=== PATIENT | male | born 1955 | race Caucasian/White ===

== ENCOUNTER → 2023-07-23 | Outpatient (CLI) | payer MEDICARE, SELFPAY ==
[2023-07-23 09:18] LABS: Absolute Lymphocyte Count 1.32 X10^3/uL (0.83-4.51); Absolute Neutrophil Count 2.5 X10^3/uL (2.0-7.7); Basophil# 0.02 X10^3/uL; Basophil% 0.5 % (0-1); Eosinophil# 0.19 X10^3/uL; Eosinophils% 4.3 % (0-5); Hematocrit 38.6 % (40-54); Hemoglobin 13.4 g/dL (13.0-16.5); Lymphocyte # 1.32 X10^3/ul (0.83-4.51); Lymphocyte % 29.7 % (19-41); Mean Corp Hgb Conc 34.7 g/dL (32-36); Mean Corpuscular Hgb 32.1 pg (27.0-32.0); Mean Corpuscular Volume 92.3 fL (80-94); Mean Platelet Vol. 9.3 fl (6.2-12.0); Monocyte# 0.36 X10^3/uL; Monocyte% 8.1 % (0-10); NRBC Flagged by Analyzer 0 % (0-5); Neutrophil # 2.54 X10^3/uL (2.7-7.7); Neutrophil % 57.2 % (47-70); Platelet Count 210 K/mm3 (150-450); RBC Distribution Width CV 11.9 % (11.6-14.6); RBC Distribution Width SD 39.9 fl (35.1-43.9); Red Blood Count 4.18 M/mm3 (4.6-6.2); White Blood Count 4.4 K/mm3 (4.4-11.0)
[2023-07-23 09:53] LABS: ALB/GLOB Ratio 1.2 RATIO (0.9-2.4); AST(SGOT) 43 U/L (15-37); Alanine Aminotransfer ALT/SGPT 59 U/L (16-61); Alkaline Phosphatase 49 U/L (45-117); Anion Gap 6 (5-15); BUN 21 mg/dL (7-18); BUN/Creat Ratio 23.1 RATIO (10-20); Calcium,Total 9.3 mg/dL (8.5-10.1); Chloride 106 mmol/L (98-107); Cholesterol 129 mg/dL (200); Creatinine, Serum 0.91 mg/dL (0.70-1.30); EST Glomerular Filtration Rate 88 mL/min (>60); Est Glom Filt Rate - Afr Amer 107 mL/min (>60); Globulin 3.2 g/dL (2.2-4.2); Glucose 102 mg/dL (74-106); High Density Lipoprotein 37 mg/dL; PSA,Total - Annual Screen 4.52 ng/mL (0.00-4.00); Potassium 3.8 mmol/L (3.5-5.1); Protein, Total 7.2 g/dL (6.4-8.2); Sodium Level 139 mmol/L (136-145); Triglycerides 142 mg/dL; Very Low Density Lipoprotein 28 mg/dL (5-40)
== END | disposition home or self-care (01) ==
PROVIDERS: PCP Family Medicine; Referring Provider Nurse Practitioner Family; Visit Provider Nurse Practitioner Family
DX: Z12.5 Encounter for screening for malignant neoplasm of prostate (principal); I10 Essential (primary) hypertension; E78.5 Hyperlipidemia, unspecified
CPT/HCPCS: 36415; 80053; 80061; 84153; 85025; G0103

== ENCOUNTER 2023-08-27 06:44 | Day surgery (SDC) | payer MEDICARE, SELFPAY ==
--- OUTSIDE RECORDS SUMMARY | 2023-08-27 06:48 | XMS RPT_ITS | CCD ---
Author Name Unknown Address [address] [place] [address] Organization [facility] Care Team Providers Care Tool Engine Lathe Set Up Operator Name Role Phone Bonifacio Sage Unavailable [phone] Torres Oconnell Unavailable Unavailable Torres Oconnell Unavailable Unavailable Naty Back Admitting Unavailable Naty Back Attending Unavailable [facility] Primary Care Unavailable Roman Huff Admitting Unavailable Roman Huff Attending Unavailable [facility] Primary Care Unavailable Kaden Darling Admitting Unavailable Kaden Darling Attending Unavailable [facility] Primary Care Unavailable Bonifacio Sage Primary Care Provider Bonifacio Sage Primary Care Provider Bonifacio Sage Primary Care Provider ZEUS UMAÑA Admitting Unavailable ZEUS UMAÑA Primary Care Unavailable ZEUS UMAÑA Attending Unavailable BERTRAND, JESSY Consulting Unavailable PROVIDER, UNKNOWN Consulting Unavailable PROVIDER, UNKNOWN Consulting Unavailable PROVIDER, UNKNOWN Consulting Unavailable ZEUS UMAÑA Admitting Unavailable ZEUS UMAÑA Primary Care Unavailable ZEUS UMAÑA Attending Unavailable BERTRAND, JESSY Consulting Unavailable PROVIDER, UNKNOWN Consulting Unavailable PROVIDER, UNKNOWN Consulting Unavailable PROVIDER, UNKNOWN Consulting Unavailable Bonifacio Sage CNP Primary Care Provider MORGAN BRAGG Attending Unavailable BONIFACIO SAGE Primary Care Unavailable MORGAN BRAGG Admitting Unavailable MORGAN BRAGG Referring Unavailable BONIFACIO SAGE Primary Care Unavailable KRIS ANGULO Admitting Unavailable KRIS ANGULO Referring Unavailable BONIFACIO SAGE Primary Care Unavailable Bonifacio Sage Unavailable SULEIMAN SULLIVAN Attending BONIFACIO Yin Primary Care Unavailable Allergies Allergy Classification Reported Allergen(s) Allergy Type Date of Onset Reaction(s) Facility (1 source) Richarddin D; Translations: [Coricedin D] Propensity to adverse reactions to drug (disorder) [facility] Medications Current Medications Medication Drug Class(es) Dates Sig (Normalized) Sig (Original) lisinopril 40 mg oral tablet (8 sources) Angiotensin Converting Enzyme Inhibitor take 2 tablets by mouth once daily lisinopril (PRINIVIL,ZESTRIL ) 40 MG tablet Take 80 mg by mouth daily. 0 Active metoprolol tartrate 25 mg oral tablet (9 sources) beta-Adrenergic Bonnie Start: 09-19-2019 metoprolol tartrate (LOPRESSOR) 25 MG tablet 1/2 pill at bedtime. . 90 tablet 3 09/19/2019 Active Completed/Discontinued Medications Medication Drug Class(es) Dates Sig (Normalized) Sig (Original) atorvastatin 10 mg oral tablet (3 sources) HMG-CoA Reductase Inhibitor End: 1 take 1 tablet by mouth once daily atorvastatin (LIPITOR) 10 MG tablet Take 10 mg by mouth daily . 0 11/01/2020 Discontinued (Discontinued by another clinician) fexofenadine hydrochloride 180 mg oral tablet (8 sources) Histamine-1 Receptor Antagonist End: 1 fexofenadine (FROYLAN) 180 MG tablet Take 180 mg by mouth as needed (Allergies). 0 11/01/2020 Discontinued (Discontinued by another clinician) hydroCHLOROthiazide 25 mg oral tablet (3 sources) Thiazide Diuretic End: 1 take 1 tablet by mouth once daily hydroCHLOROthiazide (HYDRODIURIL) 25 MG tablet Take 25 mg by mouth daily . 0 11/01/2020 Discontinued (Discontinued by another clinician) therapeutic multivitamin (THERAGRAN) tablet (6 sources) End: 1 take 1 tablet by mouth once daily therapeutic multivitamin (THERAGRAN) tablet Take 1 tablet by mouth daily. 0 11/01/2020 Discontinued (Discontinued by another clinician) Problems Active Problems Problem Classification Problem Date Documented Date Episodic/Chronic Cardiac dysrhythmias (9 sources) Supraventricular tachycardia; Translations: [Sinus bradycardia] Onset: 04-19-2017 04-19-2017 Chronic Essential hypertension (9 sources) Hypertensive disorder; Translations: [Essential hypertension] Onset: 03-23-2017 03-23-2017 Chronic Genitourinary symptoms and ill-defined conditions (5 sources) Nocturia; Translations: [Nocturia] Episodic Other circulatory disease (5 sources) H/O: hypertension; Translations: [Personal history of other diseases of circulatory system] Episodic Other diseases of kidney and ureters (5 sources) Renal mass; Translations: [Unspecified disorder of kidney and ureter] Chronic Other diseases of kidney and ureters (5 sources) Kidney lesion; Translations: [Unspecified disorder of kidney and ureter] Episodic Other non-traumatic joint disorders (1 source) Shoulder pain; Translations: [Pain in left shoulder] Episodic Other screening for suspected conditions (not mental disorders or infectious disease) (2 sources) Raised prostate specific antigen; Translations: [Elevated prostate specific antigen [PSA]] Episodic Past or Other Problems Problem Classification Problem Date Documented Date Episodic/Chronic Cardiac dysrhythmias (1 source) Sinus bradycardia; Translations: [Bradycardia, unspecified] Onset: 09-19-2019 09-19-2019 Episodic Unclassified (1 source) History of supraventricular tachycardia Results Test Name Value Interpretation Reference Range Facil ity Vital Signs Date Time Vital Sign Value Performing Clinician Davian montero 10-17-2021 15:09-0400 Body height 173.99 cm Bonifacio Muñiz [employer] Phone: [facility] Work Phone: 10-17-2021 15:09-0400 Body mass index (BMI) [Ratio] 36.27 kg/m2 Bonifacio Muñiz [employer] Phone: [facility] Work Phone: 10-17-2021 15:09-0400 Body surface area Derived from formula 2.23 m2 Bonifacio Muñiz [employer] Phone: [facility] Work Phone: 10-17-2021 15:09-0400 Body weight 109.79 kg Bonifacio Muñiz [employer] Phone: [facility] Work Phone: 10-17-2021 15:09-0400 Diastolic blood pressure 81 mm[Hg] Bonifacio L Hellinger Work Phone: [facility] Work Phone: 10-17-2021 15:09-0400 Heart rate 65 /min Bonifacio L Hellinger Work Phone: YL[facility]Xtpjalz[facility]Pomsvsi Work Phone: 10-17-2021 15:09-0400 Systolic blood pressure 147 mm[Hg] Bonifacio L Hellinger Work Phone: [facility]Uttpikd[facility]ya[facility] Work Phone: 09-29-2021 12:54-0400 Body height 174 cm Bonifacio L Hellinger Work Phone: ZC[facility]Szlcyuu-Moiqdhe Work Phone: 09-29-2021 12:54-0400 Body mass index (BMI) [Ratio] 36.46 kg/m2 Bonifacio L Hellinger Work Phone: OL-Wfkjcen-Qkonhvn Work Phone: 09-29-2021 12:54-0400 Body surface area Derived from formula 2.23 m2 Bonifacio L Hellinger Work Phone: LV-Ofjeqdo-Zsecjda Work Phone: 09-29-2021 12:54-0400 Body weight 110.4 kg Bonifacio L Hellinger Work Phone: UD-Fuwhbhb-Kycqqlg Work Phone: 09-29-2021 12:54-0400 Diastolic blood pressure 88 mm[Hg] Bonifacio L Hellinger Work Phone: RL-Rinbejc-Sqleskh Work Phone: 09-29-2021 12:54-0400 Heart rate 74 /min Bonifacio L Hellinger Work Phone: QQ-Wtrjgjp-Sugfnzh Work Phone: 09-29-2021 12:54-0400 Systolic blood pressure 148 mm[Hg] Bonifacio Sage Work Phone: BO-Xklbhrr-Wjiowzh Work Phone: 11-01-2020 13:51-0400 Body height 172.7 cm Morgan Bragg MD Work Phone: [facility] 11-01-2020 13:51-0400 Body mass index (BMI) [Ratio] 33.45 kg/m2 Morgan Bragg MD Work Phone: [facility] 11-01-2020 13:51-0400 Body weight 99.79 kg Morgan Bragg MD Work Phone: [facility] 04-17-2017 14:32-0400 BMI (Body Mass Index) 32.54 kg/m2 Kosta Keller [facility] Work Phone: 04-17-2017 14:32-0400 BP Diastolic 92 mm[Hg] Kosta Keller [facility] Work Phone: 04-17-2017 14:32-0400 BP Systolic 167 mm[Hg] Kosta Keller [facility] Work Phone: 04-17-2017 14:32-0400 Height 172.7 cm Kosta Keller [facility] Work Phone: 04-17-2017 14:32-0400 Pulse (Heart Rate) 58 /min Kosta Keller [facility] Work Phone: 04-17-2017 14:32-0400 Pulse Oximetry 97 % Kosta Keller [facility] Work Phone: 04-17-2017 14:32-0400 Weight 97.07 kg Kosta Keller [facility] Work Phone: 03-27-2017 11:20-0400 BMI (Body Mass Index) 31.93 kg/m2 Torres Oconnell [facility] Work Phone: 03-27-2017 11:20-0400 BP Diastolic 93 mm[Hg] Torres Oconnell [facility] Work Phone: 03-27-2017 11:20-0400 BP Systolic 153 mm[Hg] [facility] 03-27-2017 11:20-0400 Height 172.7 cm Torres Oconnell [facility] Work Phone: 03-27-2017 11:20-0400 Pulse (Heart Rate) 57 /min Torres Oconnell [facility] Work Phone: 03-27-2017 11:20-0400 [facility] 95.25 [facility] Work [facility]: 03-23-2017 13:22-0400 BMI (Body Mass Index) 32.23 kg/m2 Torres Oconnell [facility] Work Phone: 03-23-2017 13:22-0400 BP Diastolic 91 mm[Hg] Torres Oconnell [facility] Work Phone: 03-23-2017 13:22-0400 BP Systolic 146 mm[Hg] Torres Oconnell [facility] Work Phone: 03-23-2017 13:22-0400 Height 172.7 cm Torres Oconnell [facility] Work Phone: 03-23-2017 13:22-0400 Pulse (Heart Rate) 53 /min [facility] Work [facility]: 03-23-2017 13:22-0400 Pulse Oximetry 94 % Torres Oconnell [facility] Work Phone: 03-23-2017 13:22-0400 Weight 96.16 kg Torres Oconnell [facility] Work Phone: Encounters Encounter Date Encounter Type Care Provider Facility Start: 10-17-2021 Office outpatient vi sit 15 minutes Bonifacio Sage Work Phone: LE[facility]Qrqbbtt[facility]Xobebdd Work Phone: Start: 10-13-2021 Chart Update Bonifacio daily Work Phone: UA[facility]Cmhiwpb-Fdkcjsj Work Phone: Start: 09-29-2021 Office outpatient ne w 45 minutes Bonifacio Sage Work Phone: MV-Glxkiiw-Uzpggwe Work Phone: Start: 09-22-2021 End: 09-26-2021 [facility] Start: 09-15-2021 End: 09-15-2021 Emergency department patient visit SULEIMAN SUN [facility] Start: 11-01-2020 End: 11-05-2020 ambulatory MORGAN BRAGG [facility] Start: 11-01-2020 End: 11-01-2020 Office outpatient new 30 minutes Morgan Bragg MD Work Phone: [facility] Procedures Date Procedure Procedure Detail Performing Clinician Start: 11-01-2020 Arthrocentesis aspir &/inj major jt/bursa w/o us Morgan Bragg MD Work Phone: Start: 03-27-2017 End: 03-27-2017 Cardiovascular stress test Torres Oconnell Work Phone: Start: 03-27-2017 End: 03-27-2017 Tte w/doppler, complete Torres mcguire Work Phone: Operative procedure on knee Bonifacio Sage Work Phone: Repair of shoulder Bonifacio gonzales Work Phone: Plan of Treatment Date Care Activity Detail Author Start: 10-25-2028 Tetanus vaccination Tetanus: Every 10yrs [facility] Start: 11-07-2021 FUV, Provider: Wilfredo Sheikh, Status: Pen, Time: 3:00 PM FUV, Provider: Wilfredo Sheikh, Status: Pen, Time: 3:00 PM HM[facility]Iletxna-Vjgtfsz Work Phone: Start: 10-17-2021 FUV, Provider: Wilfredo Sheikh, Status: Pen, Time: 3:45 PM FUV, Provider: Wilfredo Sheikh, Status: Pen, Time: 3:45 PM HC-Wvrjyay-Djuthci Work Phone: Start: 03-02-2020 Influenza vaccination given Sequential Influenza Vaccine (#1) [facility] Start: 03-02-2019 Influenza vaccination given Sequential Influenza Vaccine (#1) [facility] Start: 04-17-2017 Ambulatory 04/17/2017 Office Visit Cardiology Kosta Keller MD [address] [place] [address] [phone] [facility] Start: 03-27-2017 End: 03-27-2017 Ambulatory 03/27/2017 Appointment Cardiology Torres Oconnell DO [address] [place] [address] [phone] [facility] Start: 03-02-2017 Influenza vaccination SEQUENTIAL INFLUENZA VACCINE (#1) [facility] Work Phone: Start: 2016 Zoster vacc, sc ZOSTER VACCINE [facility] Work Phone: Start: 2006 Administration of herpes zoster vaccine Zoster Vaccines (1 of 2) [facility] Start: 2006 Screening for malignant neoplasm of colon [facility] Start: 1974 Hepatitis C antibody, confirmatory test Hepatitis C Screening [facility] Start: 1974 Hepatitis C screening Hepatitis C Screening [facility] Start: 1972 COVID-19 Vaccine (1 of 2) COVID-19 Vaccine (1 of 2) [facility] Start: 11-23-1971 HIV screening HIV Screening [facility] Start: 1968 Adolescent depression screening assessment Depression Screening (PHQ9) [facility] Start: 1968 Depression screening using PHQ-9 (Patient Health Questionnaire 9) score Depression Screening (PHQ9) [facility] Start: 11-23-1959 History and physical examination, annual for health maintenance Wellness Visit [facility] Start: 1956 Hepatitis C antibody, confirmatory test Hepatitis C Screening [facility] Start: 1956 Prostate specific antigen measurement PSA Level [facility] Start: 1956 Screening for malignant neoplasm of colon Colorectal Cancer Screening: Colonoscopy [facility] Start: 1956 End: 1956 HEPATITIS C SCREENING HEPATITIS C SCREENING [facility] Work Phone: Start: 1956 End: 1956 Screening colonoscopy COLONOSCOPY [facility] Work Phone: Start: 1956 End: 1956 Tetanus vaccination [facility] Work Phone: End: 05-23-2018 Echocardiogram complete Echocardiogram complete Routine History of supraventricular tachycardia 1 Occurrences starting 03/23/2017 until 05/23/2018 [facility] Work Phone: End: 05-23-2018 Stress test only, exercise Stress test only, exercise Routine History of supraventricular tachycardia 1 Occurrences starting 03/23/2017 until 05/23/2018 [facility] Phone: Payers Date Payer Category Payer Worker's Compensation [id number] 2020 Unknown [id number] 02 2018 Unknown 2015 Unknown [id number] 2015 Unknown [employer] PPO [id number] 2015-Present [id number] 2006 Unknown [id number] 2006 Unknown [id number] 2006 Unknown DANIA PAYNE/PREF/HMO/PPO [id number] 2006-Present [id number] 1956 Unknown [id number] [id number]. 356 1956 Unknown [id number] 2.16.840.1.587686.3.579.2. 356 1956 Unknown [id number] [id number]. 356 1956 Unknown [id number] 2.16.840.1.330584.3.579.2. 717 1956 Unknown [id number] 2.16.840.1.839562.3.579.2. 717 1956 Unknown [id number] 2.16.840.1.794264.3.579.2. 717 1956 Unknown [id number] 2.16.840.1.486493.3.579.2. 651 1956 Unknown [id number] 2.16.840.1.047823.3.579.2. 651 1956 Unknown [id number] 2.16.840.1.129544.3.579.2. 903 1956 Unknown [id number] 2.16.840.1.371389.3.579.2. 903 1956 Unknown [id number] 2.16.840.1.549417.3.579.2. 903 1956 Unknown [id number] 2.16.840.1.447073.3.579.2. 903 Unknown [id number] Unknown [id number] Unknown [facility] [id number] Effective for all dates [id number] Unknown [id number] Social History Date Type Detail Facility Start: 03-27-2017 End: 11-01-2020 Tobacco smoking status RIIS Never smoker [facility] Work Phone: Sex Assigned At Not on file [facility] Work Phone: Start: 09-19-2019 End: 11-01-2020 Alcohol intake Current drinker of alcohol (finding) [facility] Start: 09-19-2019 End: 11-01-2020 Tobacco use and exposure Never used [facility] Exposure to SARS-CoV -2 (event) Not sure [facility] Never a smoker Never a smoker [facility] Work Phone: History of Present illness Narrative 09-19-2021 Note Date & Type Note Facility 09-19-2021 History of Present illness Narrative Consult for renal lesion. Pt had a recent CT urogram done which did show bilateral cysts and indeterminate lesion in right kidney with thick internal septation. He states he had a fall at work 2 weeks ago. he states he does have some right flank pain since the fall. Chronic BPH sx are mild and stable. some urgency or frequency. No dysuria. No hematuria. Nocturia 2x. caffeine does worsen sx. he does limit his caffeine intake to am. Pt has not had a recent PSA done. he does have FHx of prostate Ca. (father). No hx of kidney stones. Patient had a recent fall on his right flank and right back, he still complaining of pain 5/10, pressure-like in nature, mostly tenderness upon palpation, no fever no chills, no nausea no vomiting, no constipation, no new LUTS, no hematuria, pain does subside partially with mwej-sdv-xjpekjo medication. CT angiogram revealed multiple small exophytic lesion the biggest was 1.6 cm. We had a very long and extensive discussion with the patient regarding the pathophysiology, differential diagnosis, risk factor, management, natural history, incidence and diagnostic work-up of the condition.Explained to him that we need to proceed with a MR urogram to better assess this kidney lesions rule out any malignancy or solid component. [facility] Work Phone: History of Present illness Narrative 09-15-2021 Note Date & Type Note Facility 09-15-2021 History of Present illness Narrative Consult for renal lesion. Pt had a recent CT urogram done which did show bilateral cysts and indeterminate lesion in right kidney with thick internal septation. He states he had a fall at work 2 weeks ago. he states he does have some right flank pain since the fall. Chronic BPH sx are mild and stable. some urgency or frequency. No dysuria. No hematuria. Nocturia 2x. caffeine does worsen sx. he does limit his caffeine intake to am. Pt has not had a recent PSA done. he does have FHx of prostate Ca. (father). No hx of kidney stones. Patient had a recent fall on his right flank and right back, he still complaining of pain 5/10, pressure-like in nature, mostly tenderness upon palpation, no fever no chills, no nausea no vomiting, no constipation, no new LUTS, no hematuria, pain does subside partially with jkry-ovj-pajxklf medication. CT angiogram revealed multiple small exophytic lesion the biggest was 1.6 cm. We had a very long and extensive discussion with the patient regarding the pathophysiology, differential diagnosis, risk factor, management, natural history, incidence and diagnostic work-up of the condition.Explained to him that we need to proceed with a MR urogram to better assess this kidney lesions rule out any malignancy or solid component. TL[facility]Rzexpab-Ovnfpcd Work Phone: History of Present illness Narrative 11-01-2020 Morgan Bragg MD - 11/01/2020 2:39 PM EDT Note Date & Type Note Facility 11-01-2020 History of Presen t illness Narrative Associated Order(s): LG Jt Injection/Arthrocentesis: L subacromial bursa Post-Procedure Diagnose(s): Acute pain of left shoulder Prashanth is a 64-year-old white male seen for evaluation of left shoulder pain. Around 2000, he had a left rotator cuff repair. He stated it was a very difficult repair and rehabilitation. He had been doing pretty well until I had seen him about 15 years ago and injected his shoulder and it had not given him any problems until he was lifting weights and felt a little pop as he lifted weight overhead. This happened about 2 months ago and since then he has had soreness in his shoulder and pain reaching out and overhead activities. He cannot lift as heavy objects as he used to. He works maintenance. MEDICATIONS ARE Lisinopril, metoprolol. PAST MEDICAL HISTORY He has had a history of hypertension, supraventricular tachycardia. He states his mental health is good. SOCIAL HISTORY He works maintenance. Drinks occasional beer. Does not smoke. REVIEW OF SYSTEMS No chest pain, shortness of breath. No PND, orthopnea. No bowel or bladder symptoms or other issues. PHYSICAL EXAM General: Reveals a pleasant white male who is overweight but no acute distress. His general exam is unremarkable. He is alert and oriented x3. Neck: Supple. Musculoskeletal: His left shoulder has full passive range of motion. There is very minor crepitation. His biceps tendon appears intact. He is tender some toward the biceps, some posterior. There is some atrophy noted of the supraspinatus but he has good internal and external rotation. Positive impingement sign, but he is neurovascularly intact. IMAGING X-rays left shoulder 4 views reveal spurring from the acromion almost matches the arc of the humerus, but there is intact subacromial space. His AC joint is arthritic and there is a bony spur going inferiorly as well. IMPRESSION Rotator cuff pathology, left shoulder. He may have a complete tear. I told him I thought I would take an MRI to be sure. He has reasonably good function. We have decided to inject it, and after a sterile scrub, I injected left shoulder with 40 mg of Kenalog mixed with Xylocaine. I told him to give it 2, possibly 3 weeks. If there is still a significant amount of pain, then I think we can get an MRI. He can continue to work on motion. He is doing his own therapy essentially. No overhead lifting or weights, though. Otherwise p.r.n. return. LG Jt Injection/Arthrocentesis: L subacromial bursa Performed by: Morgan Bragg MD Authorized by: Morgan Bragg MD Supporting Documentation: Indications: Pain Procedure Details: Location: Shoulder Site: L subacromial bursa Prep: patient was prepped and draped in usual sterile fashion Needle size: 22 G Approach: Posterior Medications: 40 mg triamcinolone acetonide 40 mg/mL Anesthetic used: Lidocaine 1% Anesthetic amount (mL): 2 Patient tolerance: Patient tolerated the procedure well with no immediate complications documented in this encounter [facility] Evaluation note Note Date & Type Note Facility documented in this encounter [facility] History of Present illness Narrative Note Date & Type Note Facility History of Present illness Narrative Patient presents to the office today for MRI Abdomen Results. Results show bilateral renal lesions consistent with likelyhemorrhagic/proteinaceous cyst (Bosniak 2). Hx of renal lesion. Recent CT urogram done which did show bilateral cysts and indeterminate lesion in right kidney with thick internal septation. Chronic BPH sx are mild and stable. some urgency or frequency. No dysuria. No hematuria. Nocturia 2x. caffeine does worsen sx. he does limit his caffeine intake to am. Most recent PSA was 5.1 (10/21). He does have FHx of prostate Ca. (father). No hx of kidney stones. We had a very long and extensive discussion with the patient regarding the pathophysiology, differential diagnosis, risk factor, management, natural history, incidence and diagnostic work-up of the condition. We discussed that at this point the MRI urogram done on October 10, 2021 did not reveal any sign or symptom of malignancy.Explained to him that we need to proceed with a MR urogram to better assess this kidney lesions rule out any malignancy or solid component. [facility] Work Phone: Assessments Diagnosis History of supraventricular tachycardia Personal history of other diseases of circulatory system Diagnosis History of supraventricular tachycardia Personal history of other diseases of circulatory system Essential hypertension Unspecified essential hypertension Diagnosis History of supraventricular tachycardia Personal history of other diseases of circulatory system Diagnosis SVT (supraventricular tachyc ardia) (HCC) - Primary Other specified cardiac dysrhythmias History of supraventricular tachycardia Personal history of other diseases of circulatory system Essential hypertension Unspecified essential hypertension Diagnosis Sinus bradycardia Other specified cardiac dysrhythmias SVT (supraventricular tachycardia) (HCC) Other specified cardiac dysrhythmias Summary Purpose Family History No Family History Records FoundUnknown Family Member Name Dates Details Family history of kidney dis ease: Mother(V18.69, Z84.1) Status:Active Unknown Family Member Name Dates Details Family history of kidney dis ease: Mother(V18.69, Z84.1) Status:Active Unknown Family Member Name Dates Details Family history of kidney dis ease: Mother(V18.69, Z84.1) Status:Active Advance Directives No Advanced Directives Records FoundDocuments on File Type Date Recorded Patient Maintenance Supervisor Electrical Expl anation Advance Directives and Living Will Documents on File Type Date Recorded Patient Maintenance Supervisor Electrical Expl anation Advance Directives and Living Will Reason for Referral Status Reason Specialty Diagnoses / Procedures Referred By Contact Referred To Contact Authorized Cardiology Diagnoses Sinus bradycardia SVT (supraventricular tachycardia) (HCC) Morgan Baptiste MD [facility] [address] [address] Aaron Goss MD [address] [place] [address] Scheduling Instructions Routine Instructions * Patient Instructions* Shayy Carver MA - 09/19/2019 8:35 AM EDT How to Contact your Care Team: Provider: Dr. Morgan Baptiste MD Medical Lab Technician: Emilee Gaston RN REFILLS: When in need for refills please call your care team or the office at [phone]. Please include medication name, pharmacy name, and specify 30-day or 90-day supply. Please check with your pharmacy within 24 hours of request for your refill. You must follow up as directed to continue current refills. Thank you! documented in this encounter History of Present Illness * Morgan Baptiste MD - 09/19/2019 9:12 AM EDT Telephone Visit Via Phone Call Patient ID: Prashanth Paige is a 63 y.o. male on the phone for a sick visit Patient phone : [phone] This visit has been fully reviewed with the patient and verbal consent has been obtained. HPI Holter monitor reviewed [facility] September 13, 2019 sinus rhythm with increased ventricular ectopy. Episode of idioventricular rhythm at 91 bpm Occasional supraventricular ectopy 17 SVT runs longest 7 beats fastest 176 bpm Patient no symptoms. No A. fib. Patient with history of SVT in the past documented apparently ER visit in 2017 at [facility] did document SVT at that time per ER report September 04, 2016 initial EKG shows SVT with rate of 173, fortunately no rhythm strips or EKG of that are available.. Seen by Dr. Krishna RAINEY in 2017 and recommended continued medical therapy has been controlled with metoprolol but has had trouble with development of bradycardia heart rate down to 38 at home. Pulse in the 40s no syncope near syncope. about 3 weeks ago per PCP his metoprolol was discontinued. 1 week ago patient had episode of presumed SVT heart rate on Fitbit was 180 for the patient. Previous that he had a heart rate of around 50 had felt weak. He did submersion of his face into ice water with breaking of the SVT. Squad was called by the timethey got there the SVT had broken. Was taken to the ER at [facility] work-up was unremarkable EKG unremarkable troponin negative. Patient was discharged home He did wear a Holter monitor through [facility] results as noted above patient states he did not feel any palpitations while wearing the monitor. Heart rate this week without any beta-bonnie has beenrunning in the 55-65 range. Has felt pretty well. Impression: Recurrent SVT patient is able to break it at home with ice water facial plunge. Presumed sinus bradycardia on metoprolol with side effects of weakness fatigue. Plan at this point will restart low-dose metoprolol half of a 25 mg pill at bedtime since most of his attacks through the years have been in the first thing in the morning. We will set up consultation with electrophysiology [facility] in [place] consideration of ablation. Patient is agreement with this plan. The following portions of the patient's history were reviewed and updated as appropriate: He has a past medical history of Hypertension and SVT (supraventricular tachycardia) (HCC).. Review of Systems Reviewed per [place]. Patient's Medications New Prescriptions No medications on file Previous Medications ATORVASTATIN (LIPITOR) 10 MG TABLET Take 10 mg by mouth daily . FEXOFENADINE (FROYLAN) 180 MG TABLET Take 180 mg by mouth as needed (Allergies). HYDROCHLOROTHIAZIDE (HYDRODIURIL) 25 MG TABLET Take 25 mg by mouth daily . LISINOPRIL (PRINIVIL,ZESTRIL) 40 MG TABLET Take 80 mg by mouth daily. THERAPEUTIC MULTIVITAMIN (THERAGRAN) TABLET Take 1 tablet by mouth daily. Modified Medications No medications on file Discontinued Medications METOPROLOL TARTRATE (LOPRESSOR) 50 MG TABLET Take 25 mg by mouth 2 (two) times a day. Assessment/Plan: Diagnoses and all orders for this visit: SVT (supraventricular tachycardia) (HCC) - Ambulatory referral to Cardiac Electrophysiology; Future Sinus bradycardia - Ambulatory referral to Cardiac Electrophysiology; Future Provider location: [address] [facility] [address] [place] [id number] Patient location: [id number] [place] [address] I have spent 21-30 minutes with the patient discussing current HPI. * Shayy Carver MA - 09/19/2019 8:34 AM EDT Review of Systems Constitution: Negative for diaphoresis, malaise/fatigue, weight gain and weight loss. HENT: Negative for hearing loss, nosebleeds and tinnitus. Eyes: Negative for blurred vision and visual disturbance. Cardiovascular: Negative for chest pain, claudication, cyanosis, dyspnea on exertion, irregular heartbeat, leg swelling, near-syncope, orthopnea, palpitations, paroxysmal nocturnal dyspnea and syncope. Respiratory: Negative for hemoptysis, shortness of breath and snoring. Endocrine: Negative for cold intolerance and heat intolerance. Hematologic/Lymphatic: Does not bruise/bleed easily. Skin: Negative for flushing, poor wound healing and rash. Musculoskeletal: Negative for back pain, muscle weakness and myalgias. Gastrointestinal: Negative for abdominal pain, change in bowel habit, melena, nausea and vomiting. Genitourinary: Negative for decreased libido and hematuria. Neurological: Negative for loss of balance and numbness. Psychiatric/Behavioral: Negative for memory loss. The patient is not nervous/anxious. documented in this encounter Chief Complaint RENAL LESIONRENAL LESIONMRI Abdomen ResultsMRI Abdomen Results Additional Source Comments (unrecognized sect ion and content) No Status Records FoundNo Status Records FoundNo Status Records FoundNo Status Records FoundNo Status Records FoundNo Status Records FoundNo Status Records FoundNo Status Records FoundNo Status Records Found INFORMATION SOURCE (unrecogn ized section and content) DATE CREATED AUTHOR AUTHOR'S ORGANIZ ATION 09/17/2018 [facility] DATE CREATED AUTHOR AUTHOR'S ORGANIZ ATION 10/26/2018 [facility] DATE CREATED AUTHOR AUTHOR'S ORGANIZ ATION [facility] DATE CREATED AUTHOR AUTHOR'S ORGANIZ ATION 11/06/2020 [facility] DATE CREATED AUTHOR AUTHOR'S ORGANIZ ATION 09/26/2021 [facility] DATE CREATED AUTHOR AUTHOR'S ORGANIZ ATION 10/13/2021 [facility] DATE CREATED AUTHOR AUTHOR'S ORGANIZ ATION 10/31/2021 [employer] DATE CREATED AUTHOR AUTHOR'S ORGANIZ ATION 02/23/2022 [facility] Reason for Visit (unrecogniz ed section and content) Reason Comments Pain FOR RECORDS PERTAINING TO PATIENTS WHO ARE OR HAVE BEEN ENROLLED IN A CHEMICAL DEPENDENCY/SUBSTANCEABUSE PROGRAM, SOME INFORMATION MAY BE OMITTED. This clinical summary was aggregated from multiple sources. Caution should be exercised in using it in the provision of clinical care. This summary normalizes information from multiple sources, and as a consequence, information in this document may materially change the coding, format and clinical context of patient data. In addition, data may be omitted in some cases. CLINICAL DECISIONS SHOULD BE BASED ON THE PRIMARY CLINICAL RECORDS. [facility]. provides no warranty or guarantee of the accuracy or completeness of information in this document.
[2023-08-27 07:23] VITALS: BP 133/70; PULSE 72; RESP 16; TEMP 36.1; O2SAT 96; BMI 34.5
[2023-08-27] MEDS: Lactated Ringers 1,000 ML 15 ML IV (07:27)
--- NOTE | 2023-08-27 08:00 | COLBX_PTH ---
PATHOLOGY RESULTS PATIENT: PRASHANTH PAIGE LOC: EN U#:[id number] AGE/SX: 67/M ROOM: RE08/27/[address]: Dr. Prabhjot Petersen DO : 1955 BED: DIS: 08/27/2023 SPEC #: [id number] RECD: 08/27/23 10:10 STATUS: ANNETTA SOMMER #: [id number] ZUNILDA: 08/27/23 08:[address]: Prabhjot Petersen DEPT: SURGICAL PATHOLOGY RECD BY: Deepti Jones ENTERED: 08/27/23 10:39 SP TYPE: COLON BX Tissues: Ascending colon Procedures: Surgery Specimen Level IV HEADER OPERATION: Colonoscopy - open access with polyp biopsy PRE-OP DIAGNOSIS: Screening TISSUE SUBMITTED: Polyp biopsy ascending colon MICROSCOPIC DIAGNOSIS Ascending colon polyp, biopsy: A polypoid fragment of colonic mucosa, consistent with benign mucosal polyp. BRIAN:khloe 08/28/2023 MICROSCOPIC DESCRIPTION Slides are reviewed. GROSS DESCRIPTION Received in fixative is one container labeled with the patient's name and designated ascending colon polyp biopsy. The specimen consists of one irregular fragment of light goel soft tissue that measures 0.2 x 0.2 x 0.1 cm. The specimen is totally submitted in one cassette. / AM:khloe 08/27/2023 TC:5 CPT: 67761
--- NOTE | 2023-08-27 08:11 | HP.PCM_ITS ---
[facility] - General General Date of Admission: 08/27/23 Date of Service: 08/27/23 Chief Complaint: Screening colonoscopy HPI Narrative PRASHANTH PAIGE, is a 67 M who presents today for screening colonoscopy. He has had a colonoscopy approximately 11 years ago and it was normal. He has a past medical history of hypertension, hypercholesterolemia. He does not have any chest pain or shortness of breath. Overall he is in very good health. [facility] Medical History (Updated 08/23/23 @ 09:24 by Chelsie Duenas) Alcohol use Arthritis History of echocardiogram History of irregular heartbeat HTN (hypertension) Skin cancer Home Medications atorvastatin 20 mg tablet 20 mg PO QHS 07/24/23 [History Last Taken Unknown] fexofenadine 180 mg tablet (Allergy Relief (fexofenadine)) 180 mg PO DAILY 07/24/23 [History Last Taken Unknown] hydrochlorothiazide 25 mg tablet 25 mg PO DAILY 07/24/23 [History Last Taken Unknown] lisinopril 40 mg tablet 80 mg PO DAILY 07/24/23 [History Last Taken 08/27/23] metoprolol tartrate 25 mg tablet 12.5 mg PO QHS 07/24/23 [History Last Taken Unknown] multivitamin 1 tab PO DAILY 08/23/23 [History Last Taken Unknown] Allergy/AdvReac Type Severity Reaction Status Date / Time grass pollen Allergy Other Verified 08/27/23 07:18 Family History (Updated 07/24/23 @ 11:51 by Anya Jackson) Father Prostate CA Brother Prostate CA Surgical History (Updated 08/23/23 @ 09:24 by Chelsie Duenas) History of repair of left rotator cuff Hx of colonoscopy Hx of left knee surgery Hx of repair of right rotator cuff Social History (Updated 07/24/23 @ 11:51 by Anya Jackson) household members: spouse current occupational status: retired Smoking Status: Never smoker substance use type: does not use ROS Review of Systems ROS Unobtainable: other Constitutional Constitutional: Denies fatigue, fever(s), poor appetite, weight gain or weight loss ENT HEENT: Denies mouth lesions Cardiovascular Cardiovascular: Denies abdominal bloating, abdominal edema or abdominal pain Respiratory/Chest Respiratory/Chest: Denies change in mental status, change in phlegm color, chest congestion or chest tightness Gastrointestinal Gastrointestinal: Denies belching, bloating, change in bowel habits, change in stool character, chewing difficulty, coffee ground emesis, constipation, cramping, diarrhea, dyspepsia, dysphagia, early satiety, excessive flatus, fecal incontinence, heartburn, hematemesis, hematochezia, hemorrhoids, loose stools, melena, nausea, odynophagia, rectal bleeding, tenesmus, vomiting or weight changes Genitourinary Genitourinary: Denies abdominal discomfort, burning urination or itching Musculoskeletal Musculoskeletal: Reports as per HPI; Denies muscle weakness or myalgias Integumentary Integumentary: Denies jaundice Neurologic Neurologic: Denies lack of coordination or weakness Psychiatric Psychiatric: Denies confusion, depression, memory loss, mood swings, paranoia or suicidal ideation Endocrine Endocrinology: Denies systems reviewed and no addt'l complaints, except as documented Hematologic/Lymphatic Hematologic/Lymphatic: Denies anemia, easy bleeding, easy bruising or lymphadenopathy Allergic/Immunologic Allergic/Immunologic: Denies systems reviewed and no addt'l complaints, except as documented Vital Signs Vital Signs Vital Signs: 08/27/23 07:23 08/27/23 07:23 Temperature 96.9 F L Temperature Source Temporal Pulse Rate 72 Respiratory Rate 16 Respiratory Pattern Normal Blood Pressure 133/70 H Blood Pressure Mean 91 Blood Pressure Source Monitor Blood Pressure Position Semi-Fowlers Blood Pressure Location Left Arm Pulse Ox 96 Oxygen Delivery Method Room Air Weight Weight: 227 lb 1.218 oz Body Mass Index (BMI) 34.5 Physical Exam Const alert General Appearance: cooperative Orientation / Consciousness: oriented to person HEENT hearing grossly normal bilaterally Head and Scalp: normal to inspection Face and Sinus: face symmetric Nose: external nose normal Mouth: oral and palatal mucosa normal Eyes conjunctivae normal General Eye: normal appearance of both eyes Neck full ROM General: normal visual inspection Lymph Lymphatic: no lymphadenopathy noted Chest inspection of chest normal and palpation of chest normal Chest: symmetrical chest wall rise Resp normal respiratory effort Effort and Inspection: able to speak in complete sentences Cardio regular rate GI non-distended Percussion: normal to percussion Rectal Exam: deferred Neuro Speech: speech normal Gait (Neuro): normal gait Assessment & Plan Assessment/Plan (1) Encounter for screening for malignant neoplasm of colon: PLAN: 67-year-old gentleman comes in for screening colonoscopy. He was explained alternatives, risk, benefits include not withstanding bleeding, infection, sepsis, perforation, need for emergent surgery . He will have an ASA of 3.
[2023-08-27 08:40] VITALS: BP 100/61; BP 133/70; PULSE 62; RESP 18; TEMP 36.6; O2SAT 94
--- NOTE | 2023-08-27 08:43 | OP.CCLET_ITS ---
08/27/2023 Daisy Garcia Re : Colonoscopy procedure for Kiko Moncada Tranr Ronaldo This procedure was performed on Sunday, August 27, 2023. My impressions and recommendations are as follows: Impressions : - One 4 mm polyp in the ascending colon, removed with a cold biopsy forceps. Resected and retrieved. - Diverticulosis in the recto-sigmoid colon and in the sigmoid colon. Recommendations : - Discharge patient to home. - Resume previous diet. - Continue present medications. - Await pathology results. - Repeat colonoscopy in 5 years for surveillance. My findings are described in the full procedure note, which is enclosed. If I can be of further assistance, please feel free to contact me at . Sincerely, Prabhjot Petersen, 08/27/2023 8:43:04 AM This report has been signed electronically.
--- NOTE | 2023-08-27 08:43 | OP.COLON_ITS ---
Patient Name: Kiko Moncada Procedure Date: 08/27/2023 8:14 AM Date of : 1955 Age: 67 Procedure: Colonoscopy Indications: Screening for colorectal malignant neoplasm Providers: Prabhjot Petersen DO Medicines: Monitored Anesthesia Care Patient Profile: This is a 67 year old male. Refer to note in patient chart for documentation of history and physical. Last Colonoscopy: more than 10 years ago. Complications: No immediate complications. Procedure: Pre-Anesthesia Assessment: - Prior to the procedure, a History and Physical was performed, and patient medications and allergies were reviewed. The patient is competent. The risks and benefits of the procedure and the sedation options and risks were discussed with the patient. All questions were answered and informed consent was obtained. Patient identification and proposed procedure were verified by the physician in the pre-procedure area. Mental Status Examination: alert and oriented. CV Examination: normal. Prophylactic Antibiotics: The patient does not require prophylactic antibiotics. Prior Anticoagulants: The patient has taken no anticoagulant or antiplatelet agents. After reviewing the risks and benefits, the patient was deemed in satisfactory condition to undergo the procedure. The anesthesia plan was to use monitored anesthesia care (MAC). Immediately prior to administration of medications, the patient was re-assessed for adequacy to receive sedatives. The heart rate, respiratory rate, oxygen saturations, blood pressure, adequacy of pulmonary ventilation, and response to care were monitored throughout the procedure. The physical status of the patient was re-assessed after the procedure. After I obtained informed consent, the scope was passed under direct vision. Throughout the procedure, the patient's blood pressure, pulse, and oxygen saturations were monitored continuously. The Colonoscope was introduced through the anus and advanced to the cecum, identified by appendiceal orifice and ileocecal valve. The colonoscopy was performed without difficulty. The patient tolerated the procedure well. The quality of the bowel preparation was good. The ileocecal valve, appendiceal orifice, and rectum were photographed. Scope In: 8:20:39 AM Scope Withdrawal Time 0 hours 10 minutes 3 seconds Scope Out: 8:34:56 AM Total Procedure Duration Time 0 hours 14 minutes 17 seconds Findings: The perianal and digital rectal examinations were normal. A 4 mm polyp was found in the ascending colon. The polyp was sessile. The polyp was removed with a cold biopsy forceps. Resection and retrieval were complete. Verification of patient identification for the specimen was done. Estimated blood loss was minimal. Multiple small-mouthed diverticula were found in the recto-sigmoid colon and sigmoid colon. Impression: - One 4 mm polyp in the ascending colon, removed with a cold biopsy forceps. Resected and retrieved. - Diverticulosis in the recto-sigmoid colon and in the sigmoid colon. Recommendation: - Discharge patient to home. - Resume previous diet. - Continue present medications. - Await pathology results. - Repeat colonoscopy in 5 years for surveillance. Procedure Code(s): --- Professional --- 34756, Colonoscopy, flexible; with biopsy, single or multiple CPT copyright 2021 [employer]. All rights reserved. The codes documented in this report are preliminary and upon market research senior project manager review may be revised to meet current compliance requirements. Prabhjot Petersen DO 08/27/2023 8:43:04 AM This report has been signed electronically. Number of Addenda: 0 Note Initiated On: 08/27/2023 8:14 AM
[2023-08-27 08:45] VITALS: BP 102/56; BP 133/70; PULSE 63; RESP 18; O2SAT 92
[2023-08-27 08:50] VITALS: BP 133/70; BP 96/50; PULSE 65; RESP 18; O2SAT 94
[2023-08-27 08:55] VITALS: BP 101/42; BP 133/70; PULSE 59; RESP 18; TEMP 37.2; O2SAT 93
[2023-08-27 09:28] VITALS: BP 133/70
== END 2023-08-27 09:31 | disposition home or self-care (01) ==
LOC: EN 06:46 → AC 06:48
PROVIDERS: PCP Nurse Practitioner Family; Referring Provider Nurse Practitioner Family; Visit Provider Internal Medicine Gastroenterology
PROC: 0DJD8ZZ Inspection of Lower Intestinal Tract, Via Natural or Artificial Opening Endoscopic (ICD-10-PCS; CPT 45378; principal; 2023-08-27 07:55)
DX: Z12.11 Encounter for screening for malignant neoplasm of colon (principal); K57.30 Diverticulosis of large intestine without perforation or abscess without bleeding; I10 Essential (primary) hypertension; E78.00 Pure hypercholesterolemia, unspecified; K63.5 Polyp of colon; Z79.899 Other long term (current) drug therapy
CPT/HCPCS: 45380; 88305; J7120; J2405

== ENCOUNTER → 2024-02-18 | Outpatient (CLI) | payer MEDICARE, SELFPAY ==
[2024-02-18 10:00] LABS: PSA,Total- Diagnostic 4.22 ng/mL (0.0-4.0)
[2024-02-19 12:09] LABS: PSA, Free 1.16 ng/mL; PSA, Free % 31.4 % (.)
== END | disposition home or self-care (01) ==
LOC: LAB 08:13
PROVIDERS: PCP Nurse Practitioner Family; Referring Provider Urology; Visit Provider Urology
DX: R97.20 Elevated prostate specific antigen [PSA] (principal)
CPT/HCPCS: 36415; 84153; 84154

== ENCOUNTER → 2024-03-07 | Outpatient (CLI) | payer MEDICARE, SELFPAY ==
--- NOTE | 2024-03-07 08:13 | MRI_ITS ---
EXAMINATION: MR Pelvis WO/W Contrast COMPARISON: None CLINICAL HISTORY: 68 yo M with elevated PSA. Most recent PSA = 4.2 ng/ml; PSA date = 02/18/2024 TECHNIQUE: Standard prostate MR protocol was used before and after administration of 20 cc of IV Clariscan. FINDINGS: Prostate volume: 64 cc PSA density: 0.07 ng/ml2 Length of membranous urethra: 20 mm Post-biopsy hemorrhage: None Multiparametric MR evaluation: Heterogeneous appearance of the central gland is consistent with benign prostatic hyperplasia. Lesion 1: LOCATION - moderately T2 hypointense ill-defined lesion in the left anterior and posterior transitional zone at mid gland measuring approximately 1.3 x 1 x 0.9 cm. It is mildly bright on DWI and mildly dark on ADC map. T2 - 3 DWI - 3 DCE - inconclusive Overall PI-RADS v2 score = 3 Capsular margin and neurovascular bundle: Not involved Seminal vesicles: Not involved. Lymph nodes: No lymphadenopathy in the field of view. Bones: No suspicious lesions in the field of view. MRI/Pelvis W/WO Contrast IMPRESSION: 1.3 cm PI-RADS 3 lesion in the left anterior and posterior TZ at mid gland. - No evidence of macroscopic extracapsular extension. - No evidence of seminal vesicle invasion. - No lymphadenopathy. - No suspicious bone lesions. Benign prostatic hyperplasia. Electronically Signed: Duane De Santiago MD at 23:41 EDT ,
[2024-03-07 08:48] LABS: CREATININE FINGERSTICK < 1.0 mg/dL (0.70-1.30); EGFR FINGERSTICK > 60.0000 mL/min (>60)
== END | disposition home or self-care (01) ==
PROVIDERS: PCP Nurse Practitioner Family; Referring Provider Urology; Visit Provider Urology
DX: R97.20 Elevated prostate specific antigen [PSA] (principal)
CPT/HCPCS: 72197; A9575

== ENCOUNTER → 2024-03-20 | Outpatient (CLI) | payer MEDICARE, SELFPAY ==
--- NOTE | 2024-03-20 | PROSBIL_PTH ---
PATIENT: PRASHANTH PAIGE LOC: [facility] U#:[id number] AGE/SX: 68/M ROOM: RE03/20/[address]: Dr. Ivan Mercedes MD : 1955 BED: DIS: 03/20/2024 SPEC #: [id number] RECD: 03/21/24 11:04 STATUS: ANNETTA SOMMER #: [id number] ZUNILDA: 03/20/24 00:[address]: Ivan Mercedes DEPT: SURGICAL PATHOLOGY RECD BY: Roman Jackson ENTERED: 03/21/24 11:05 SP TYPE: PROST BX JORGE DR: Annmarie Higgins, LEGAL EDITOR-C Tissues: A - PROSTATE RIGHT B - PROSTATE RIGHT C - PROSTATE RIGHT D - PROSTATE LEFT E - PROSTATE LEFT F - PROSTATE LEFT Procedures: PROSTATE BX HEADER OPERATION: Prostate biopsy PRE-OP DIAGNOSIS: Elevated PSA TISSUE SUBMITTED: A - Right apex, B - Right mid, C - Right base, D - Left apex, E - Left mid, F - Left base MICROSCOPIC DIAGNOSIS A. Right prostate, apex, core biopsy: Prostatic tissue, negative for malignancy. Focal moderate chronic inflammation and minimal acute inflammation. B. Right prostate, mid, core biopsy: Prostatic tissue, negative for malignancy. Focal moderate chronic inflammation and minimal acute inflammation C. Right prostate, base, core biopsy: Focal high-grade prostatic intraepithelial neoplasia (HGPIN). Basal cell hyperplasia, focal mild acute and chronic inflammation. D. Left prostate, apex, core biopsy: Prostatic tissue, negative for malignancy. Focal mild acute and chronic inflammation. E. Left prostate, mid, core biopsy: Prostatic tissue, negative for malignancy. Focal mild chronic inflammation. F. Left prostate, base, core biopsy: Negative for malignancy. 03/24/2024 MICROSCOPIC DESCRIPTION Slides are reviewed. GROSS DESCRIPTION A - Received is one container designated prostate, right apex. The specimen consists of two elongated fragments of light goel-white soft tissue each measuring 1.5 cm in length and 0.1 cm in diameter. The specimen is totally submitted in one cassette. B - Received is one container designated prostate, right mid. The specimen consists of two elongated fragments of light goel-white soft tissue measuring 1.0 and 1.5 cm in length and 0.1 cm in diameter. The specimen is totally submitted in one cassette. C - Received is one container designated prostate, right base. The specimen consists of two elongated fragments of light goel-white soft tissue each measuring 1.5 cm in length and 0.1 cm in diameter. The specimen is totally submitted in one cassette. D - Received is one container designated prostate, left apex. The specimen consists of two elongated fragments of light goel-white soft tissue measuring 1.5 and 1.8 cm in length and 0.1 cm in diameter. The specimen is totally submitted in one cassette. E - Received is one container designated prostate, left mid. The specimen consists of two elongated fragments of light goel-white soft tissue each measuring 1.8 cm in length and 0.1 cm in diameter. The specimen is totally submitted in one cassette. F - Received is one container designated prostate, left base. The specimen consists of two elongated fragments of light goel-white soft tissue measuring 1.5 and 1.7 cm in length and 0.1 cm in diameter. The specimen is totally submitted in one cassette. / SJ.mr 03/21/2024 TC:3 CPT: 75420 x6
== END | disposition home or self-care (01) ==
LOC: LABSPEC 15:41
PROVIDERS: PCP Nurse Practitioner Family; Referring Provider Urology; Visit Provider Urology
DX: R97.20 Elevated prostate specific antigen [PSA] (principal); N40.0 Benign prostatic hyperplasia without lower urinary tract symptoms
CPT/HCPCS: 88305; G0416